=== PATIENT | female | born 2000 | race Caucasian/White ===

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

== ENCOUNTER 2020-04-05 23:20 | Emergency (ER) | payer OTHER ==
[2020-04-05 23:28] VITALS: BMI 24.5
[2020-04-06] MEDS ORDERED: LACTULOSE 20 GM/30 ML UDC (FOR ORAL USE ONLY) PO ONE (00:51)
[2020-04-06 01:22] LABS: EPI CELLS >36 /uL (0-25.1); HYALINE CASTS 6 /uL (0-3.1); PH,URINE 5.5 (5.0-8.0); URINE APPEARANCE TURBID; URINE BACTERIA 1101 /uL (0-1359); URINE BILIRUBIN NEGATIVE (NEGATIVE); URINE COLOR RED; URINE GLUCOSE (UA) NEGATIVE (NEGATIVE); URINE KETONE NEGATIVE (NEGATIVE); URINE LEUK ESTERASE 1+ (NEGATIVE); URINE NITRITE NEGATIVE (NEGATIVE); URINE PROTEIN 2+ (NEGATIVE); URINE RBC 9400 /uL (0-23.9); URINE WBC 215 /uL (0-25.8)
[2020-04-06] MEDS ORDERED: LACTULOSE 20 GM/30 ML UDC (FOR ORAL USE ONLY) ONE (01:22)
[2020-04-06 01:23] VITALS: BP 114/85; PULSE 89; TEMP 98
[2020-04-06] MEDS ORDERED: SULFAMETHOXAZOLE/TRIMETHOPRIM 800MG/160MG D.S. TABLET PO ONE (01:50)
[2020-04-06] MEDS ORDERED: SULFAMETHOXAZOLE/TRIMETHOPRIM 800MG/160MG D.S. TABLET ONE (02:11)
== END 2020-04-06 02:45 | disposition home or self-care (01) ==
LOC: JER 23:20
DX: N30.00 Acute cystitis without hematuria (principal)
CPT/HCPCS: 36415; 81003; 84703; 86780; 87070; 87389; 87880; 99283-25; C9803; U0003

== ENCOUNTER 2020-06-29 03:43 | Emergency (ER) | payer OTHER ==
[2020-06-29 04:07] VITALS: BP 132/91; PULSE 96; TEMP 98.5; BMI 24.1
[2020-06-29] MEDS ORDERED: diphenhydrAMINE HCL 25 MG CAPSULE (FP) PO ONE ×3 (04:18→04:22)
[2020-06-29] MEDS ORDERED: PSEUDOEPHEDRINE HCL 60 MG TABLET PO ONE (04:21)
[2020-06-29] MEDS ORDERED: PSEUDOEPHEDRINE HCL 60 MG TABLET ONE (04:22)
== END 2020-06-29 04:33 | disposition home or self-care (01) ==
LOC: JER 03:43
DX: R09.81 Nasal congestion (principal)
CPT/HCPCS: 87804; 99284-25; C9803; U0003; U0005

== ENCOUNTER 2020-09-15 08:20 | Emergency (ER) | payer OTHER ==
[2020-09-15 08:29] VITALS: BP 118/63; PULSE 81; TEMP 98.1; BMI 20.5
== END 2020-09-15 09:49 | disposition home or self-care (01) ==
LOC: JER 08:20
DX: L08.9 Local infection of the skin and subcutaneous tissue, unspecified (principal)
CPT/HCPCS: 99281-25

== ENCOUNTER 2022-03-12 13:53 | Emergency (ER) | payer OTHER ==
[2022-03-12 14:23] VITALS: BP 129/90; PULSE 90; RESP 18; TEMP 98.2; BMI 24.5
[2022-03-12] MEDS ORDERED: LIDOCAINE 5% TOPICAL PATCH TP ONE (17:19)
[2022-03-12] MEDS ORDERED: IBUPROFEN 600 MG TABLET (FP) PO ONE ×2 (17:19→17:21)
[2022-03-12] MEDS ORDERED: METHOCARBAMOL 500 MG TABLET PO ONE (17:19)
[2022-03-12] MEDS ORDERED: METHOCARBAMOL 500 MG TABLET ONE (17:21)
[2022-03-12] MEDS ORDERED: LIDOCAINE 5% TOPICAL PATCH ONE (17:21)
== END 2022-03-12 19:01 | disposition home or self-care (01) ==
LOC: JERFT 13:53
DX: M54.2 Cervicalgia (principal); M54.6 Pain in thoracic spine
CPT/HCPCS: 72050-TC-FY; 72070-TC-FY; 84703; 99284-25

== ENCOUNTER 2022-05-11 17:33 | Emergency (ER) | payer OTHER ==
[2022-05-11 17:46] VITALS: BP 130/71; PULSE 72; RESP 18; TEMP 98; BMI 25.4
[2022-05-11] MEDS ORDERED: CYCLOBENZAPRINE HCL 10 MG TABLET (FP) PO ONE (18:48)
[2022-05-11] MEDS ORDERED: ACETAMINOPHEN 500 MG TABLET (FP) PO ONE (18:48)
[2022-05-11] MEDS ORDERED: KETOROLAC TROMETHAMINE 30 MG/1 ML VIAL IM ONE (18:48)
[2022-05-11] MEDS ORDERED: KETOROLAC TROMETHAMINE 30 MG/1 ML VIAL ONE (19:03)
[2022-05-11] MEDS ORDERED: CYCLOBENZAPRINE HCL 10 MG TABLET (FP) ONE (19:03)
[2022-05-11] MEDS ORDERED: ACETAMINOPHEN 500 MG TABLET (FP) ONE (19:03)
== END 2022-05-11 19:33 | disposition home or self-care (01) ==
LOC: JERFT 17:33
PROC: 3E023GC Introduction of Other Therapeutic Substance into Muscle, Percutaneous Approach (ICD-10-PCS; principal; 2022-05-11)
DX: M54.2 Cervicalgia (principal); M54.50 Low back pain, unspecified; V47.6XXA Car passenger injured in collision with fixed or stationary object in traffic accident, initial encounter
CPT/HCPCS: 73030-TC-RT-FY; 96372; 99284-25

== ENCOUNTER 2022-11-05 18:54 | Emergency (ER) | payer OTHER ==
[2022-11-05 19:02] VITALS: BP 116/81; PULSE 106; RESP 20; TEMP 98.1; BMI 26.4
[2022-11-05 20:25] LABS: HCG,QUALITATIVE URINE Negative
[2022-11-05 20:34] LABS: PH,URINE 5.5 (5.0-8.0); URINE APPEARANCE CLEAR; URINE BILIRUBIN NEGATIVE (NEGATIVE); URINE COLOR YELLOW; URINE GLUCOSE (UA) NEGATIVE (NEGATIVE); URINE KETONE NEGATIVE (NEGATIVE); URINE LEUK ESTERASE NEGATIVE (NEGATIVE); URINE NITRITE NEGATIVE (NEGATIVE); URINE PROTEIN NEGATIVE (NEGATIVE); URINE UROBILINOGEN 0.2 mg/dL (0.2-1.0)
[2022-11-05] MEDS ORDERED: KETOROLAC TROMETHAMINE 30 MG/1 ML VIAL IM ONE (20:57)
[2022-11-05] MEDS ORDERED: KETOROLAC TROMETHAMINE 30 MG/1 ML VIAL ONE (21:02)
== END 2022-11-05 21:04 | disposition home or self-care (01) ==
LOC: JERFT 18:54
PROC: 3E0233Z Introduction of Anti-inflammatory into Muscle, Percutaneous Approach (ICD-10-PCS; principal; 2022-11-05)
DX: R10.2 Pelvic and perineal pain (principal); N89.8 Other specified noninflammatory disorders of vagina; M25.511 Pain in right shoulder; G89.29 Other chronic pain; B37.31 Acute candidiasis of vulva and vagina
CPT/HCPCS: 36415; 81003; 84703; 87077; 87086; 87491; 87591; 87661; 99284-25